=== PATIENT | female | born 1940 | race Caucasian/White ===

== ENCOUNTER 2018-05-04 12:22 | Emergency (ER) | payer MEDICARE, OTHER ==
[2018-05-04] MEDS ORDERED: Albuterol/Ipratropium 3.0-0.5 MG/3 ML Neb Soln NEB ONE (12:36)
--- NOTE | 2018-05-04 13:09 | CR ---
CLINICAL HISTORY: 77-year-old female with low-grade fever, cough and shortness of breath ("asthma"). INTERPRETATION: 1. Pop rods thoracolumbar spine. 2. Ectatic prominent thoracic aorta. 3. Normal cardiac silhouette without cephalization of flow, signs of alveolar edema or dependent pleu ral fluid accumulation. 4. No lung mass or hilar lymphadenopathy. 5. No bronchial inflammatory "cuffing" or bronchospasm. No lobar pneumonia. 6. No atelectasis/collapse. No pneumothorax. CONCLUSION: No acute cardiopulmonary abnormality.
[2018-05-04 13:13] LABS: CHLORIDE,CL 100 mmol/L (101-111); SODIUM,NA 135 mmol/L (135-145)
[2018-05-04] MEDS ORDERED: Azithromycin 250 MG Tab PO ONE (13:14)
--- NOTE | 2018-05-04 14:43 | ER ---
SUBJECTIVE: The patient is a 77-year-old female who is on a tour, here in [place] and writing on a tour bus. She is from [place]. She was at a [place] with her tour group and was brought in by ambulance to the emergency room because she had some mild shortness of breath and wheezing and thought she maybe having an asthma attack, was in a smoking environment. She also feels a little more sleepy than usual and has had a little nausea without vomiting today. Feeling good, just a little under the weather. No fevers. No chills. No chest pain. No melena. No hematochezia. No bowel changes. No bladder changes. She states she does have asthma but is mild. She states she is feeling much better by the time she arrived to the emergency room and has very little symptoms left. She denies any bites, stings, or rashes. No falls. PAST MEDICAL AND SURGICAL HISTORY: Significant for self-reported asthma. She states it is fairly mild and is allergic in nature. She has impaired vision, hyperlipidemia, hypertension, GERD. She had breast biopsy, cancer of her left breast. She has had an oophorectomy. She has had osteoarthritis, knee surgery, hypothyroidism. MEDICATIONS: Current medicines are reviewed. Please see the nursing documentation. The patient is trying to ascertain all of her medications. ALLERGIES: She states she is allergic to ALEKSANDRA inhibitors, cause her to itch; amoxicillin causes her to itch; clindamycin gives her diarrhea; and sulfa causes her to itch. SOCIAL HISTORY: No tobacco. No alcohol. She lives in [place]. REVIEW OF SYSTEMS: She did have some shortness of breath, and it is now resolved. No chest pain. She does have some mild mid-epigastric pain on and off for a couple of days, very mild, not having problems now. She has been having some decreased appetite but has been able to eat and drink. No dysuria. No bowel changes. No chalky white stools. No jaundice. Some nausea. No bites, stings, or rashes. Feels a little under the weather in general, but is very vague. OBJECTIVE: Vital Signs: Her height is 1.6 m, weight is 84 kg. She is afebrile. Heart rate is 120 initially, blood pressure 98/50, respiratory rate 16 to 20, and oxygen is 96% on room air. After in the ER, she is up in the 99% on room air. General: She is very talkative, smiling, appears pleasant, fairly healthy for her age. She is somewhat overweight. Can speak in full sentences. Appears in no respiratory distress. States she feels much better. She is A and O x3. GCS of 15. HEENT: Normocephalic and atraumatic. Mucous membranes moist. Exam unremarkable. Sclerae are clear. No jaundice. Neck: Unremarkable. No JVD. Chest: Clear. No rhonchi, wheezing, or rales. Cardiovascular: RRR. Abdomen: Soft, overweight, and benign. Back: No CVAT. Extremities: Trace pedal edema of bilateral calves. Negative Kit sign. Good pedal pulses. No signs of DVT. Skin: Clear. No signs of cellulitis. LABORATORY DATA/STUDIES: Her workup was really rushed as she has a tour bus picking her up, and she states she has to absolutely beyond the tour bus as it is taking her back home today to [place]. She states she is feeling fine and back to normal and does not want to wait any longer. A CBC was performed. White cell count was normal. She had no anemia. Differential was not remarkable with the exception of PMNs elevated at 85.9. She had no band cells. Sodium is normal. Potassium is 3.5. Her anion gap was normal. BUN and creatinine were normal. Her glucose was elevated at 169. Her lactic acid was mildly elevated at 2.6. Her liver function tests are elevated, however, with an AST of 389 and ALT of 225. Her alkaline phosphatase was normal at 112. Her total bilirubin was elevated at 4.2, although she did not show any jaundice on exam. Her BNP was elevated mildly at 174. Her chest x-ray was read by Dr. Travis, and it was unremarkable for acute pulmonary changes. EMERGENCY ROOM COURSE: She was given a DuoNeb. Once most of her workup was back, she was given 1 tablet of azithromycin. She tolerated all this well and remained stable and feels improved. I did review her labs with her quickly, especially her elevated liver function tests and her total bilirubin. She does not recall having any problems with her liver before. She is not willing to stay for longer as her tour bus is going to pick her up at this time. She is currently stable. ASSESSMENT: 1. Hyperbilirubinemia with elevation of liver function tests of unknown etiology. 2. Asthma, mild exacerbation, stable. 3. Mild mid-epigastric abdominal discomfort in a patient with known gastroesophageal reflux disease. 4. Mild nausea. PLAN: Advised the patient that she absolutely needed to have her blood rechecked, and her elevated liver function tests and total bilirubin are followed up. She states she plans to have some surgery on her knees in the next 2 weeks and advised that they will not do surgery if she does not have this repeated and followed up, as they will not do surgery on labs that are abnormal. She was given a prescription of azithromycin and Zofran. She is advised to keep hydrated, very bland diet. Further workup was not able to be obtained or performed because the patient decided to leave on her tour bus, but she was strongly encouraged to follow up with her PCP as above. [facility] /[id number]
== END 2018-05-04 13:20 ==
LOC: DL.ED 12:22
DX: J45.901 Unspecified asthma with (acute) exacerbation (principal); E80.6 Other disorders of bilirubin metabolism; K21.9 Gastro-esophageal reflux disease without esophagitis; R79.89 Other specified abnormal findings of blood chemistry; Z88.1 Allergy status to other antibiotic agents
CPT/HCPCS: 36415; 71045; 80053; 83605; 83880; 85025; 87040; 99285; A9270